=== PATIENT | female | born 1960 | race Hispanic/Latino ===

== ENCOUNTER 2016-07-13 13:00 | Day surgery (SDC) | payer OTHER ==
--- NOTE | 2016-07-13 09:19 | Anesthesia Consultation ---
Anesthesia Consult and Med Hx Date of service: 07/13/16 - Airway Anesthetic Teeth Evaluation: Good ROM Head & Neck: Adequate Mental/Hyoid Distance: Adequate Mallampati Class: Class I Intubation Access Assessment: Good - Pulmonary Exam CTA: Yes - Cardiac Exam Cardiac Exam: RRR - Pre-Operative Health Status ASA Pre-Surgery Classification: ASA3 Proposed Anesthetic Plan: General - Pulmonary Hx Smoking: No COPD: Yes (Never smoked. Has had issues with collapsed lungs. Daily inhaler.) Hx Sleep Apnea: No - Cardiovascular System Hx Hypertension: Yes (FOR 7 YRS) Hx Heart Murmur: Yes - Other Systems Hx Alcohol Use: Yes (2 GLASSES OF WINE DAILY) Hx Cancer: No - Additional Comments Anesthesia Medical History Comments: Strong history of PONV, otherwise no previous anesthesia complications.
--- NOTE | 2016-07-13 09:24 | Anesthesia Day of Surgery ---
Anesthesia Day of Surgery - Day of Surgery Patient Examined: Yes Patient H&P Reviewed: Yes Patient is NPO: Yes Beta Blockers: Yes
--- NOTE | 2016-07-13 12:16 | Short Stay Summary ---
Short Stay Documentation Date of service: 07/13/16 Narrative H&P: see attached H&P - Allergies and Medications Current Medications: Allergies morphine Adverse Reaction (Verified 07/13/16 09:02) Nausea Home Medications Medication Instructions Recorded Confirmed Last Taken Type Cetirizine HCl [ZyrTEC] 10 mg PO QDAY 07/10/16 07/13/16 07/13/16 07:00 History Escitalopram Oxalate [Lexapro] 20 mg PO QDAY 07/10/16 07/13/16 07/12/16 07:00 History Nebivolol HCl [Bystolic] 10 mg PO QDAY 07/10/16 07/13/16 07/13/16 07:00 History Omeprazole 40 mg PO QDAY 07/10/16 07/13/16 07/12/16 12:00 History Umeclidinium Brm/Vilanterol Tr 1 each IH QDAY 07/10/16 07/13/16 07/13/16 07:00 History [Anoro Ellipta 62.5-25 Mcg INH] 1 PUFF Active Medications Famotidine (Pepcid) 20 mg IV PREOP NR Stop: 07/13/16 15:00 Last Admin: 07/13/16 09:59 Dose: 20 mg Sodium Chloride (Nacl 0.9% 1000 Ml) 1,000 mls @ 42 mls/hr IV ONCE ONE Stop: 07/14/16 09:48 Last Admin: 07/13/16 09:51 Dose: 42 mls/hr Midazolam HCl (Versed) 2 mg IV PREOP PRN PRN Reason: Agitation Stop: 07/13/16 15:00 Last Admin: 07/13/16 09:53 Dose: 2 mg Scopolamine (Transderm-Scop) 1 each TD PREOP NR Stop: 07/13/16 15:00 Last Admin: 07/13/16 09:58 Dose: 1 each - Brief post op/procedure progress note Date of procedure: 07/13/16 Pre-op diagnosis: Paraesophageal hernia, GERD Post-op diagnosis: same Procedure: Lap Paraesophageal hernia repair, LINX procedure. Anesthesia: GETA Findings: 5cm PEH, size 14 LINX Surgeon: MECHE RIVERO (Brenda QUINN) Estimated blood loss: none Pathology: none Condition: stable - Disposition Condition at discharge: Good Disposition: DISCHARGED TO HOME OR SELFCARE Short Stay Discharge Plan Activity: advance as tolerated Weight Bearing Status: Weight Bear as Tolerated Diet: regular Wound: keep clean and dry Follow up with: MECHE RIVERO MD [Staff Physician] - 7 Days
--- NOTE | 2016-07-13 12:45 | Post Anesthesia Evaluation ---
- Post Anesthesia Evaluation Patient Participated: Yes Airway Patent: Yes Stable Respiratory Function: Yes Nausea/Vomiting: No Temp > 96.8F: Yes Pain Manageable: Yes Adequeate Hydration: Yes Anesthesia Complications: No
[~2016-07-13 13:00] MED LIST: ANCEF/STERILE WATER 2 GM/20 ML IV NR; DECADRON IV NR; DILAUDID ONE; DIPRIVAN 10 MG/ML IV ONE; LOVENOX SUB-Q ONE; MARCAINE 0.25% INFILTRATI ONE; MARCAINE-EPI 0.25%-1:200,000 INFILTRATI ONE; NACL 0.9% 1000 ML 1,000 ML IV ONE; NACL 0.9% 1000 ML 1,000 ML ONE; NACL 0.9% IR ONE; NACL BACTERIOSTATIC INFILTRATI ONE; NEOSTIGMINE ONE; PEPCID IV NR; QUELICIN ONE; ROBINUL ONE; SUBLIMAZE ONE; TRANSDERM-SCOP TD NR; VERSED IV PRN; XYLOCAINE MPF 2% ONE; ZEMURON IV ONE; ZOFRAN IV PRN; ZOFRAN ONE; ePHEDrine SULFATE ONE
[2016-07-13] MEDS: DILAUDID IV PRN ×2 (13:05→13:17)
[2016-07-13 14:09] VITALS: BP 110/49
--- NOTE | 2016-07-13 19:59 | Operative Report ---
PREOPERATIVE DIAGNOSES: Paraesophageal hernia as well as gastroesophageal reflux disease. POSTOPERATIVE DIAGNOSES: Paraesophageal hernia as well as gastroesophageal reflux disease. PROCEDURE: Paraesophageal hernia repair and magnetic sphincter augmentation device placement. SURGEON: Rosalinda Nunez MD EVP BUSINESS DEVELOPMENT: Brenda Myrick. ANESTHESIA: General anesthesia. ESTIMATED BLOOD LOSS: Minimal. COMPLICATIONS: None. DRAINS: None. SPECIMEN: None. The patient tolerated the procedure well. Findings were 5-6 cm paraesophageal hiatal hernia, repaired primarily and a size 14 sphincter device placement. INDICATION: This is a 56-year-old female with a moderate to large paraesophageal hernia, Gutierrez's esophagitis and reflux, here for a paraesophageal hernia repair and magnetic sphincter placement. DESCRIPTION OF PROCEDURE: The patient taken to the OR, placed supine on the operating table. Once general anesthesia was obtained, the anterior abdominal wall was prepped and draped in the sterile fashion. A 0.5 cm incision was made into the left and superior to the umbilicus. An Optiview trocar was used to enter the peritoneal cavity. CO2 was used to insufflate the peritoneal cavity and after visualization revealed no abnormalities, a right ____ 5 mm trocar was placed, left 10 mm trocar was placed, left lateral abdominal wall 5 mm trocar was placed and an epigastric incision was made for a Kaleb retractor to elevate the left lobe of the liver. This was the esophageal hiatus area. The patient was found to have an obvious moderate to large hiatal hernia defect. Dissected along the lesser curvature and the lesser sac to expose the caudate lobe of the liver and right crura of the diaphragm. We dissected along the inferior aspect of the right crura. All hiatal hernia sac was grasped and reflected laterally and entered the mediastinal space. The hernia sac was then circumferentially dissected away from the hiatus and crura and reflected inferiorly back to the peritoneal cavity. We dissected up into the mediastinal space to get good esophageal length intraperitoneally. After this was completed, we made a ____ posterior to the esophagus to get from the right to the left side. All remnant attachments to the left crura were dissected away to expose the crura circumferentially. A Hermelindo drain was then brought around the esophagus to better visualize the crural defect as well as the opening. The defect was approximately 5-6 cm, fairly large, approximated primarily with 0 Ethibond in an interrupted fashion x 3 sutures, found to have good closure. No stricture. Good esophageal length and no tension. After this was completed, the posterior vagus was visualized. A window was made from the posterior aspect of the esophagus between the vagus. Eunice drain was then brought around and circled that area. A length sizer was used to find the esophageal diameter. We found to have a size 14 length. After this was completed, a size 14 length was placed in the peritoneal cavity, brought around the esophagus and secured to itself with the attachment device, found to be in good position, found secured in place appropriately. The sutures were removed and after this was completed, found to be in good exposure, good length, and good position. The Hermelindo drain was removed. All retractors were removed, all ports removed, CO2 evacuated, and all skin incisions closed in subcuticular fashion. The patient tolerated the procedure well. JOB# [id number] MARK/ARNOLD
== END 2016-07-13 14:10 | disposition home or self-care (01) ==
LOC: OR 13:00
PROVIDERS: ATTEND Surgery
DX: K44.9 Diaphragmatic hernia without obstruction or gangrene (principal); K21.9 Gastro-esophageal reflux disease without esophagitis; J44.9 Chronic obstructive pulmonary disease, unspecified; E78.00 Pure hypercholesterolemia, unspecified; I10 Essential (primary) hypertension; Z72.89 Other problems related to lifestyle; Z79.899 Other long term (current) drug therapy; Z82.49 Family history of ischemic heart disease and other diseases of the circulatory system; Z83.49 Family history of other endocrine, nutritional and metabolic diseases; Z84.0 Family history of diseases of the skin and subcutaneous tissue
CPT/HCPCS: 43281; 81025; J0330; J0690; J1100; J1170; J1650; J2250; J2405; J2704; J2710; J3010; J7030; L8699